=== PATIENT | male | born 1980 | race Caucasian/White ===

== ENCOUNTER 2018-11-14 21:00 | Emergency (ER) | payer BC, SELFPAY ==
[2018-11-14 21:01] VITALS: BP 171/91; PULSE 82; RESP 16; TEMP 36.3; O2SAT 100; BMI 33.4
--- NOTE | 2018-11-14 21:04 | EKG12_ITS ---
Test Reason : CP Blood Pressure : / mmHG Vent. Rate : 064 BPM Atrial Rate : 064 BPM P-R Int : 194 ms QRS Dur : 110 ms QT Int : 386 ms P-R-T Axes : 026 014 021 degrees QTc Int : 398 ms Normal sinus rhythm Normal ECG Confirmed by DAMION MORRIS, JUHI ([id number]), editor managing director MEGHAN DELGADO ([id number] on 11/16/2018 3:23:19 PM Referred By: JOSE ROBERTO Confirmed By:JUHI BRUNO MD
--- NOTE | 2018-11-14 21:20 | RAD_ITS ---
STUDY: X-RAY CHEST REASON FOR EXAM: Male, 38 years old. Chest pain. TECHNIQUE: Single AP portable view of the chest. COMPARISON: December 11, 2015. FINDINGS: The lungs are clear and expanded. There is no demonstrated pleural abnormality. Normal size heart. Normal mediastinum and kamilah. Normal visualized pulmonary arteries. Normal visualized aortic arch and descending thoracic aorta. Normal visualized thoracic spine. Normal visualized ribs, clavicles, and shoulders. There is no demonstrated abnormality of the visualized soft tissue structures of the upper abdomen. RAD/Chest 1 View (Portable) IMPRESSION: No acute cardiopulmonary disease or interval change. Electronically Signed: David Haile DO at 21:36 EST Tel [phone], Service support ,
[2018-11-14 21:36] LABS: Basophil# 0.02 X10^3/uL; Basophil% 0.4 % (0-1); Eosinophil# 0.07 X10^3/uL; Eosinophils% 1.3 % (0-5); Hematocrit 47.8 % (40-54); Hemoglobin 15.8 g/dl (13.0-16.5); Lymphocyte % 34.7 % (19-41); Mean Corp Hgb Conc 33.1 g/gl (32-36); Mean Corpuscular Hgb 29.7 pg (27.0-32.0); Mean Corpuscular Volume 89.8 fL (80-94); Mean Platelet Vol. 9.9 fl (6.2-12.0); Monocyte# 0.44 X10^3/uL; Neutrophil # 3.04 X10^3/uL (2.7-7.7); Neutrophil % 55.4 % (47-70); Platelet Count 201 K/mm3 (150-450); RBC Distribution Width CV 13.2 % (11.6-14.6); RBC Distribution Width SD 42.9 fl (35.1-43.9); Red Blood Count 5.32 M/mm3 (4.6-6.2); White Blood Count 5.5 K/mm3 (4.4-11.0)
[2018-11-14 21:37] LABS: POSITIVE COUNT NO; POSITIVE DIFFERENTIAL NO; POSITIVE MORPHOLOGY NO
[2018-11-14 21:57] LABS: Anion Gap 8 (5-15); BUN 16 mg/dL (7-18); BUN/Creat Ratio 12.5 RATIO (10-20); Chloride 105 mmol/L (98-107); Creatinine, Serum 1.28 mg/dL (0.70-1.30); EST Glomerular Filtration Rate 67 mL/min (>60); Est Glom Filt Rate - Afr Amer 81 mL/min (>60); Glucose 96 mg/dL (74-106); Potassium 3.8 mmol/L (3.5-5.1); Sodium Level 142 mmol/L (136-145)
[2018-11-14 22:54] VITALS: O2SAT 98
[2018-11-14 22:56] VITALS: BP 141/91; PULSE 65; RESP 18; O2SAT 98
--- NOTE | 2018-11-14 22:58 | EKG12_ITS ---
Test Reason : REPEAT Blood Pressure : / mmHG Vent. Rate : 059 BPM Atrial Rate : 059 BPM P-R Int : 192 ms QRS Dur : 104 ms QT Int : 408 ms P-R-T Axes : 047 002 013 degrees QTc Int : 403 ms Sinus bradycardia Nonspecific T wave abnormality Abnormal ECG Confirmed by DAMION MORRIS, JUHI ([id number]), editor magazine MEGHAN DELGADO ([id number]) on 11/16/2018 3:23:33 PM Referred By: Confirmed By:JUHI BRUNO MD
[2018-11-14] MEDS: Aspirin 325 MG Tablet PO (23:02)
[2018-11-14 23:06] VITALS: BP 131/90; PULSE 62; RESP 17; O2SAT 97
[2018-11-15] VITALS: BP 129/80; PULSE 64; RESP 16; O2SAT 97
--- NOTE | 2018-11-15 00:14 | ED.VISSUMM ---
- ER Visit Summary Date of Service: 11/15/18 Chief Complaint: Chest pain History of Present Illness: The patient is a 38 M presents to the emergency department chest pain. The patient is a 38-year-old male with no significant past medical history. He takes no daily medications. He states today, he had a dull ache in his left chest into his left arm. He states his been constant throughout the day. It is not made worse with exertion. He denies any dyspnea or nausea. He states he did have similar pain like this a few years ago. He was actually evaluated here and was discharged. He has not had a stress test. He does have a strong family history of cardiac disease, but he himself has no known history of coronary vascular disease. The pain does not wax and wane. He states up until today, he is been in his normal state of health. He has had no exertional dyspnea, orthopnea, weight gain, or leg swelling. He has no history of pulmonary embolus. Physical Examination: Vital signs reviewed General: Well-nourished, well-developed Head: Normocephalic, atraumatic Eyes: Pupils equal and reactive, extraocular muscles intact Neck, supple, no lymphadenopathy Heart: Regular rate and rhythm Respiratory: No distress, clear bilaterally Abdomen: Soft, nontender, nondistended, no peritoneal signs Back: Nontender Extremities: Nontender, no edema, no cords Skin: Normal color no rash Neuro: Alert and oriented, no focal or lateralizing deficits Test Results: [] Emergency Department Course and Treatment: The patient presents with chest pain. He has a heart score of 2. Initial EKG does not show any acute ischemic change. It is unchanged from prior. X-ray was unremarkable. Patient is resting comfortably. His initial cardiac enzymes are normal. I did discuss options with the patient. Given his low heart score, moderate story, and normal EKG he was comfortable with delta troponin pathway. This was done after 3 hours. His repeat enzymes are still negative. The patient is pain-free. He does have follow-up today with his primary care. I do feel that this is reasonable and they can discuss outpatient stress testing. At this time, the patient be discharged home. He was counseled on concerning symptoms and reasons to return. Treatment Plan: [] Disposition: Discharge Impression: Chest pain This note was generated with [employer] software. It may contain incorrect words, spelling, and punctuation that were not noted in review of the chart prior to signing ED Disposition - Plan for ED Patient: Chief Complaint: Chest Pain Instructions: ED Chest Pain Atypical Unkn Cause Referrals: Christiano Cosby DO [Primary Care Provider] -
[2018-11-15 00:32] VITALS: BP 129/80; PULSE 68; RESP 22; O2SAT 97
== END 2018-11-15 00:33 | disposition home or self-care (01) ==
PROVIDERS: Emergency Provider Emergency Medicine; Family Provider Preventive Medicine Occupational Medicine; PCP Preventive Medicine Occupational Medicine
DX: R07.9 Chest pain, unspecified (principal)
CPT/HCPCS: 71045; 80048; 84484; 85025; 93005; 99285; A4216

== ENCOUNTER → 2018-11-21 06:36 | Outpatient (CLI) | payer BC, SELFPAY ==
[2018-11-14 21:01] VITALS: BMI 33.4
--- NOTE | 2018-11-21 18:05 | STRESSREP ---
Stress Test Report Exercise myocardial perfusion stress test. 38-year-old man with a history of chest pain. Medications: Lisinopril. Stress protocol: Resting EKG demonstrates normal sinus rhythm with a rate of 61 bpm probable LVH is noted nonspecific ST-T wave changes were noted resting blood pressure 132/94. On the basis of the above the test was changed to a stress myocardial perfusion scan. The patient exercised according to the regular Vishal protocol for total duration of 11 minutes and 16 seconds the maximum heart rate attained was 173 bpm which was 95% of maximum predicted heart rate the maximum workload was 13.7 metabolic equivalents. At rest there were no ST or T wave changes noted suggest ischemia peak exercise upsloping ST changes only were noted with normally the criteria for ischemia. The resting blood pressure 132/94 with a peak blood pressure of 168/80 mmHg. Myocardial perfusion protocol. 14.3 mCi of technetium 99m sestamibi was injected at rest. The patient exercised according to regular Vishal protocol for 11 minutes 16 seconds at peak exercise 44.4 mCi of technetium 99m sestamibi was injected stress images were obtained stress and rest images were reconstructed and compared in the short axis vertical long horizontal long axis. Gated images were also obtained per Perfusion SPECT analysis: Review of the stress images demonstrate normal uptake of tracer noted in all areas of the myocardium. The resting images similarly demonstrate normal uptake of tracer noted in all areas of the myocardium. No areas of reversibility are noted suggest ischemia and no previous infarct is noted. Gated SPECT analysis: The gated ejection fraction is noted to be 63%. Conclusion: Exercise myocardial perfusion stress test with no evidence of ischemia at a high workload. No clinical angina noted. Good blood pressure response to exercise. No angina noted. No arrhythmias present.
== END ==
PROVIDERS: Family Provider Preventive Medicine Occupational Medicine; PCP Preventive Medicine Occupational Medicine; Referring Provider Internal Medicine Cardiovascular Disease; Visit Provider Internal Medicine Cardiovascular Disease
DX: R07.9 Chest pain, unspecified (principal)
CPT/HCPCS: 78452; 93017; A9500; A4216